=== PATIENT | female | born 1945 | race Caucasian/White ===

== ENCOUNTER 2021-05-06 21:43 | Emergency (ER) | payer SELFPAY ==
--- NOTE | 2021-05-06 21:50 | NUR ---
PATIENT LWBS. CALLED PATIENT MULTIPLE TIMES TO BE TRIAGED.
== END 2021-05-06 21:50 | disposition left against medical advice (07) ==
LOC: SED 21:43
DX: E16.2 Hypoglycemia, unspecified (principal); Z53.21 Procedure and treatment not carried out due to patient leaving prior to being seen by health care provider